=== PATIENT | female | born 1930 | race Caucasian/White ===

== ENCOUNTER 2017-05-12 15:52 | Inpatient (IN) ==
--- NOTE | 2017-05-12 16:10 | Emergency Department Note ---
Disposition Clinical Impression: Dehydration Disposition: Admitted As Inpatient Condition: Good Time of Disposition: 20:00 Weakness HPI - General Chief complaint: ED Weakness Stated complaint: WEAKNESS Time Seen by Provider: 05/12/17 15:54 Source: patient Mode of arrival: wheelchair Limitations: no limitations Nursing Notes Reviewed: Yes Vital Signs Reviewed: Yes - History of Present Illness HPI Narrative: 87-year-old female presents with complaints of generalized weakness. Patient was diagnosed with influenza last week and has been severely weak since that time. Patient has not been tolerating liquids or foods. Patient feels dizziness when she stands. Patient was taken off the Tamiflu considering that she was having a reaction to this. Patient per she is Feeling much better. Patient reports some nausea no vomiting no diarrhea. Patient has had similar symptoms in the past. Pt Subjective Complaint: generalized weakness/fatigue Onset (ago): week(s) (1) Duration: constant Location: generalized Migration: none Pain Severity: none Pain Scale: 0 Context: recent illness Associated symptoms: Reports: loss of appetite, nausea/vomiting - Related Data Home Medications Medication Instructions Recorded Confirmed Furosemide [Lasix] 40 mg PO BID 10/09/16 05/12/17 Levothyroxine [Synthroid] 50 mcg PO 0630 10/09/16 05/12/17 Albuterol Sulfate [Proair Hfa] 2 puff IH Q6H PRN 05/12/17 05/12/17 Aloe Vera 25 mg PO DAILY 05/12/17 05/12/17 Aspirin [Ecotrin] 325 mg PO DAILY 05/12/17 05/12/17 Biotin 5 mg PO DAILY 05/12/17 05/12/17 Cholecalciferol (Vitamin D3) 2,000 unit PO DAILY 05/12/17 05/12/17 [Vitamin D] Dicyclomine [Bentyl] 10 mg PO QID 05/12/17 05/12/17 Lactobacillus Combination No.8 1 cap PO DAILY 05/12/17 05/12/17 [Adult Probiotic] Meclizine [Antivert] 25 mg PO TID PRN 05/12/17 05/12/17 Mineral Oil 45 ml PO DAILY PRN 05/12/17 05/12/17 [place] Q Plus 1 cap PO DAILY 05/12/17 Ondansetron ODT [Zofran ODT] 4 mg SL Q8HR PRN 05/12/17 05/12/17 Allergies Allergy/AdvReac Type Severity Reaction Status Date / Time phenobarbital Allergy Agitated Verified 05/12/17 16:09 Sulfa (Sulfonamide Allergy Hives Verified 05/12/17 16:09 Antibiotics) All systems ED: reviewed and negative except as stated. Review of Systems: As Per HPI Constitutional: Reports: weakness. Denies: fever, chills Cardiovascular: Denies: chest pain, palpitations Respiratory: Denies: cough, dyspnea Gastrointestinal: Reports: nausea. Denies: abdominal pain, vomiting, diarrhea Past Medical History - Past Medical History Attestation: Yes The following information was validated with the patient. Source: patient, nursing notes reviewed Medical history: Reports: hyperlipidemia, hypertension, myocardial infarction, thyroid disease Psychiatric history: Reports: no psych history PUMP TECHNICIAN history: Reports: non-contributory - Social History Smoking Status: Never smoker Smokeless Tobacco Status: No Alcohol use: Reports: none Drug use: Reports: none Physical Exam - General Limitations: no limitations General appearance: alert, in no apparent distress, cachectic - Head Head exam: atraumatic, normocephalic - Eye Eye exam: Present: PERRL, EOMI. Absent: conjunctival injection - ENT ENT exam: mucous membranes dry - Neck Neck exam: Present: normal inspection, full ROM. Absent: lymphadenopathy, thyromegaly - Chest Chest inspection: Present: normal inspection, symmetric chest wall rise - Respiratory Respiratory exam: Present: normal lung sounds bilaterally - Cardiovascular Cardiovascular exam: Present: regular rate, normal rhythm, normal heart sounds - Abdominal Exam Abdominal exam: Present: soft, Non-Tender, normal bowel sounds - Extremities Exam Extremities exam: Present: normal inspection, full ROM. Absent: pedal edema - Neurological Exam Neurological exam: Present: alert, oriented X3, CN II-XII intact, reflexes normal. Absent: motor sensory deficit - Psychiatric Psychiatric exam: Present: normal affect - Skin Skin exam: Present: warm, dry, intact, normal color, other (poor turgor) Course Vital Signs Temperature 97.9 F 05/12/17 15:53 Pulse Rate 83 05/12/17 15:53 Respiratory Rate 16 05/12/17 15:53 Blood Pressure 156/73 05/12/17 15:53 O2 Sat by Pulse Oximetry 100 05/12/17 15:53 Temperature 97.9 F 05/13/17 04:00 Pulse Rate 77 05/13/17 04:00 Respiratory Rate 16 05/13/17 04:00 Blood Pressure 122/65 05/13/17 04:00 O2 Sat by Pulse Oximetry 97 05/13/17 04:00 Oxygen Delivery Oxygen Delivery Room Air Weakness - Differential Diagnosis Differential Diagnosis: Likely: dehydration, medication effect, metabolic - Lab Data Lab results reviewed: Yes I reviewed the patient's lab results. Lab results narrative: Patient with stable anemia and renal insufficiency. Result diagrams: 05/12/17 16:45 05/12/17 16:45 Lab Results 05/12/17 05/12/17 05/12/17 Range/Units 16:45 16:45 16:45 WBC 7.7 (4.3-11.1) K/mcL RBC 3.94 (3.82-4.97) M/mcL Hgb 11.4 L (11.5-15.4) g/dL Hct 34.7 L (35.3-44.9) % MCV 88.1 (83.0-100.0) fL MCH 28.9 (28.0-33.3) pg MCHC 32.9 (31.6-35.5) g/dL RDW 13.2 (11.5-14.5) % Plt Count 490 H (140-400) K/mcL MPV 10.3 (9.4-12.4) fL Immature Gran % 0.6 (0-4) % Seg Neutrophils % 59.1 % Lymphocytes % 30.9 % Monocytes % 7.7 % Eosinophils % 1.3 % Basophils % 0.4 % Neutrophils # 4.6 (1.6-8.9) K/mcL Lymphocytes # 2.4 (0.6-4.6) K/mcL Monocytes # 0.6 (0.0-1.3) K/mcL Eosinophils # 0.1 (0.0-0.6) K/mcL Basophils # 0.0 (0.0-0.2) K/mcL Sodium 137 (136-145) mEq/L Potassium 3.5 (3.5-4.5) mEq/L Chloride 97 L (98-109) mEq/L Carbon Dioxide 26 (19-29) mEq/L BUN 25 H (7-20) mg/dL Creatinine 1.51 H (0.57-1.11) mg/dL Est GFR ( Amer) 40 L (> 60) Est GFR (Non-Af Amer) 33 L (> 60) BUN/Creatinine Ratio 17 (6-26) Glucose 72 (70-99) mg/dL Calculated Osmolality 287 (280-300) Calcium 10.2 (8.6-10.8) mg/dL Total Bilirubin 0.5 (0.2-1.2) mg/dL AST 23 (5-34) Units/L ALT 12 (0-55) Units/L Alkaline Phosphatase 67 (38-126) Units/L Creatine Kinase 16 L (29-168) Units/L Troponin I 0.01 (0-0.03) ng/mL Serum Total Protein 7.6 (6.0-8.3) g/dL Albumin 3.1 L (3.5-5.0) g/dL Globulin 4.5 H (2.4-3.5) g/dL Albumin/Globulin Ratio 0.7 L (1.1-2.2) Urine Color (Yellow) Urine Clarity (Clear) Urine pH (5.0-8.0) pH Units Ur Specific [place] (1.010-1.025) Urine Protein (Neg-Trace) mg/dL Urine Glucose (UA) (Normal) mg/dL Urine Ketones (Negative) mg/dL Urine Blood (Negative) Urine Nitrite (Negative) Urine Bilirubin (Negative) Urine Urobilinogen (Normal) mg/dL Ur Leukocyte Esterase (Negative) Urine Microscopic WBC (0-3) per hpf Ur Squamous Epith Cells (None-Few) per lpf Urine Bacteria (None-Few) per hpf Ur Culture Indicated? (NO) 05/12/17 Range/Units 18:20 WBC (4.3-11.1) K/mcL RBC (3.82-4.97) M/mcL Hgb (11.5-15.4) g/dL Hct (35.3-44.9) % MCV (83.0-100.0) fL MCH (28.0-33.3) pg MCHC (31.6-35.5) g/dL RDW (11.5-14.5) % Plt Count (140-400) K/mcL MPV (9.4-12.4) fL Immature Gran % (0-4) % Seg Neutrophils % % Lymphocytes % % Monocytes % % Eosinophils % % Basophils % % Neutrophils # (1.6-8.9) K/mcL Lymphocytes # (0.6-4.6) K/mcL Monocytes # (0.0-1.3) K/mcL Eosinophils # (0.0-0.6) K/mcL Basophils # (0.0-0.2) K/mcL Sodium (136-145) mEq/L Potassium (3.5-4.5) mEq/L Chloride (98-109) mEq/L Carbon Dioxide (19-29) mEq/L BUN (7-20) mg/dL Creatinine (0.57-1.11) mg/dL Est GFR ( Amer) (> 60) Est GFR (Non-Af Amer) (> 60) BUN/Creatinine Ratio (6-26) Glucose (70-99) mg/dL Calculated Osmolality (280-300) Calcium (8.6-10.8) mg/dL Total Bilirubin (0.2-1.2) mg/dL AST (5-34) Units/L ALT (0-55) Units/L Alkaline Phosphatase (38-126) Units/L Creatine Kinase (29-168) Units/L Troponin I (0-0.03) ng/mL Serum Total Protein (6.0-8.3) g/dL Albumin (3.5-5.0) g/dL Globulin (2.4-3.5) g/dL Albumin/Globulin Ratio (1.1-2.2) Urine Color Yellow (Yellow) Urine Clarity Clear (Clear) Urine pH 6.0 (5.0-8.0) pH Units Ur Specific [place] <= 1.005 L (1.010-1.025) Urine Protein Negative (Neg-Trace) mg/dL Urine Glucose (UA) Normal (Normal) mg/dL Urine Ketones Trace H (Negative) mg/dL Urine Blood Negative (Negative) Urine Nitrite Negative (Negative) Urine Bilirubin Negative (Negative) Urine Urobilinogen Normal (Normal) mg/dL Ur Leukocyte Esterase Trace H (Negative) Urine Microscopic WBC 3-5 H (0-3) per hpf Ur Squamous Epith Cells Few (None-Few) per lpf Urine Bacteria Few (None-Few) per hpf Ur Culture Indicated? YES A (NO) - Radiology Data Radiology results reviewed: Yes I reviewed the patient's radiology results. Chest x-ray was interpreted by the radiologist and reviewed by me as negative for acute abnormalities. Results discussed with patient and daughter. - EKG Data EKG attestation: Yes I reviewed and interpreted this EKG. EKG shows normal: sinus rhythm Rate: normal Rhythm: NSR [place]/QRS: normal Interpretation: no acute changes
[2017-05-12] MEDS ORDERED: 0.9 % Sodium Chloride 1,000 ML IVC SCH (16:15)
[2017-05-12 16:53] LABS: Basophils % 0.4 %; Eosinophils # 0.1 K/mcL (0.0-0.6); Eosinophils % 1.3 %; Hematocrit 34.7 % (35.3-44.9); Hemoglobin 11.4 g/dL (11.5-15.4); Immature Granulocytes % 0.6 % (0-4); Lymphocytes # 2.4 K/mcL (0.6-4.6); Lymphocytes % 30.9 %; Mean Corpuscular HGB Conc 32.9 g/dL (31.6-35.5); Mean Corpuscular Hemoglobin 28.9 pg (28.0-33.3); Mean Corpuscular Volume 88.1 fL (83.0-100.0); Mean Platelet Volume 10.3 fL (9.4-12.4); Monocytes # 0.6 K/mcL (0.0-1.3); Monocytes % 7.7 %; Neutrophils # 4.6 K/mcL (1.6-8.9); Platelet Count 490 K/mcL (140-400); Red Blood Count 3.94 M/mcL (3.82-4.97); Red Cell Distribution Width 13.2 % (11.5-14.5); Segmented Neutrophils % 59.1 %
[2017-05-12 17:12] LABS: Albumin 3.1 g/dL (3.5-5.0); Albumin/Globulin Ratio 0.7 (1.1-2.2); Bilirubin,Total 0.5 mg/dL (0.2-1.2); Calcium 10.2 mg/dL (8.6-10.8); Globulin 4.5 g/dL (2.4-3.5); Potassium 3.5 mEq/L (3.5-4.5); Total Protein 7.6 g/dL (6.0-8.3)
[2017-05-12 18:35] LABS: Bilirubin,Urine Negative (Negative); Blood,Urine Negative (Negative); Clarity,Urine Clear (Clear); Color,Urine Yellow (Yellow); Glucose,Urine (UA) Normal (Normal); Ketones,Urine Trace mg/dL (Negative); Leukocyte Esterase,Urine Trace (Negative); Nitrite,Urine Negative (Negative); Protein,Urine Negative (Neg-Trace); Specific Gravity,Urine <= 1.005 (1.010-1.025); Urobilinogen,Urine Normal (Normal)
[2017-05-12 18:47] LABS: Bacteria,Urine Few per hpf (None-Few); Squamous Epithelial Cell,Urine Few per lpf (None-Few)
[2017-05-12] MEDS ORDERED: Naloxone 0.4 MG/ML INJ IVP PRN (20:54)
[2017-05-12] MEDS ORDERED: Ondansetron ODT 4 MG TAB.RAPDIS SL PRN (20:54)
[2017-05-12] MEDS ORDERED: 0.9 % Sodium Chloride 1,000 ML ONE (20:56)
[2017-05-12] MEDS: 0.9 % Sodium Chloride 1,000 ML IVC SCH ×2 (20:59)
[2017-05-12] MEDS: Furosemide 40 MG TABLET PO SCH (22:40)
[2017-05-13] MEDS: 0.9 % Sodium Chloride 1,000 ML IVC SCH ×3 (03:40→23:39)
[2017-05-13] MEDS: Furosemide 40 MG TABLET PO SCH (09:41)
[2017-05-13] MEDS: LACTOBACILLUS COMBINATION NO 8 PO SCH (09:41)
[2017-05-13] MEDS: Aspirin Enteric Coated 325 MG Tablet PO SCH (09:41)
[2017-05-13] MEDS: ALOE VERA 25 MG PO SCH (09:41)
[2017-05-13] MEDS: Cholecalciferol (D-3) 1,000 UNIT TABLET PO SCH (09:41)
[2017-05-13] MEDS: (Biotin [Biotin] 5 MG) PO SCH (09:41)
--- NOTE | 2017-05-13 15:49 | Internal Med History&Physical ---
Date of Encounter: 05/13/17 Time of Encounter: 15:43 Internal Medicine - H&P: HPI Chief complaint: Patient had flu she is 87 years old. She states she just kept getting weak Admitted From: Emergency Dept Plans for Post Hospital Care: Home History of present illness: Ms. Allred is a 87 year old female Past Med Surg Social Fam HX - Past Medical History Medical history: hyperlipidemia, hypertension, myocardial infarction, thyroid disease Psychiatric history: no psych history - Social History Smoking Status: Never smoker Smokeless Tobacco Status: No Alcohol use: none Drug use: none Internal Medicine - H&P: Meds Furosemide [Lasix] 40 mg PO BID 10/09/16 [History] Levothyroxine [Synthroid] 50 mcg PO 0630 10/09/16 [History] Albuterol Sulfate [Proair Hfa] 2 puff IH Q6H PRN 05/12/17 [History] Aloe Vera 25 mg PO DAILY 05/12/17 [History] Aspirin [Ecotrin] 325 mg PO DAILY 05/12/17 [History] Biotin 5 mg PO DAILY 05/12/17 [History] Cholecalciferol (Vitamin D3) [Vitamin D] 2,000 unit PO DAILY 05/12/17 [History] Dicyclomine [Bentyl] 10 mg PO QID 05/12/17 [History] Lactobacillus Combination No.8 [Adult Probiotic] 1 cap PO DAILY 05/12/17 [ History] Meclizine [Antivert] 25 mg PO TID PRN 05/12/17 [History] Mineral Oil 45 ml PO DAILY PRN 05/12/17 [History] [place] Q Plus 1 cap PO DAILY 05/12/17 [History] Ondansetron ODT [Zofran ODT] 4 mg SL Q8HR PRN 05/12/17 [History] 3 Allergy/AdvReac Type Severity Reaction Status Date / Time phenobarbital Allergy Agitated Verified 05/12/17 16:09 Sulfa (Sulfonamide Allergy Hives Verified 05/12/17 16:09 Antibiotics) All Systems PM: A 10-system review of systems was performed and is negative for pertinent findings except as documented above in the HPI. - Constitutional Constitutional: anorexia, fatigue, weakness, weight loss Additional comments: He may have lost up to 13 pounds since her acute illness - EENT Eyes: no blurry vision, no change in vision, no decreased night vision, no diplopia, no discharge, no dry eye, no floaters, no irritation, no itchy eyes, no loss of peripheral vision, no loss of vision, no pain, no photophobia, no seeing flashes, no spots in vision, no tunnel vision, no other visual disturbances Ears: no ear discharge, no tinnitus Nose, mouth and throat: no dysphagia, no epistaxis, no facial pain, no hoarseness, no nasal obstruction, no neck mass, no neck pain, no nose pain, no throat swelling, no tongue swelling - Breasts Breasts: no change in shape, no mass, no pain, no nipple discharge, no skin changes, no swelling - Cardiovascular Cardiovascular ROS IM: no as per HPI, no chest pain, no diaphoresis, no dyspnea , no dyspnea on exertion, no edema, no lightheadedness, no orthopnea, no palpitations, no paroxysmal nocturnal dyspnea, no syncope - Respiratory Respiratory: cough, dyspnea on exertion, chest congestion, no dyspnea, no hemoptysis, no pain on inspiration, no excessive phlegm production, no change in phlegm color - Gastrointestinal Gastrointestinal: cramping, diarrhea, loose stools, no abdominal pain, no belching, no bloating, no change in bowel habits, no change in stool character, no coffee ground emesis, no constipation, no dyspepsia, no dysphagia, no early satiety, no excessive flatus, no fecal incontinence, no heartburn, no hematemesis, no hematochezia, no melena, no nausea, no odynophagia, no tenesmus , no vomiting, no other - Genitourinary Genitourinary: no abnormal menses, no abnormal vaginal bleeding, no amenorrhea, no breast change in shape, no breast mass, no breast pain, no breast skin changes, no breast swelling, no change in libido, no change in urinary stream, no difficulty conceiving, no difficulty urinating, no difficulty voiding, no dysmenorrhea, no dyspareunia, no dysuria, no flank pain, no genital lesions, no genital pruritis, no hematuria, no hot flashes, no light periods, no menorrhagia , no metrorrhagia, no nipple discharge, no nocturia, no pelvic pain, no post void dribbling, no prolapse symptoms, no sexual dysfunction, no urinary frequency, no urinary hesitancy, no urinary incontinence, no urinary urgency, no vaginal discharge, no vaginal dryness, no vaginal odor, no vaginal pruritis Additional comments: Patient is a 7 this is not applicable - Integumentary Integumentary IM: no erythema, no pruritus, no rash, no unusual bruising, no jaundice - Neurological Neurological ROS: no abnormal gait, no abnormal hearing, no abnormal movements, no abnormal speech, no behavioral changes, no burning sensations, no confusion, no convulsions, no disequilibrium, no dizziness, no focal weakness, no frequent falls, no headache(s), no lack of coordination, no numbness, no paresthesias, no radicular pain, no restless legs, no tingling, no tremor(s), no vertigo, no weakness, no other visual disturbances - Psychiatric Psychiatric: no abnormal sleep pattern, no anhedonia, no anxiety, no auditory hallucinations, no behavioral changes, no change in appetite, no change in libido, no confusion, no depression, no difficulty concentrating, no hallucinations, no homicidal ideation, no hopelessness, no irritability, no memory loss, no mood swings, no panic attacks, no paranoia, no suicidal ideation , no visual hallucinations, no tactile, no other - Endocrine Endocrine IM: no as per HPI, no deeping of the voice, no excessive sweating, no fatigue, no flushing, no heat intolerance, no polydipsia, no polyphagia, no polyuria - Hematologic/Lymphatic Hematologic/Lymphatic: no easy bleeding, no easy bruising, no lymphadenopathy - Allergic/Immunologic Allergic/Immunologic: no tongue swelling, no throat swelling, no itchy eyes, no seasonal rhinorrhea, no wheezing, no GI upset with certain foods, no lip swelling - Constitutional Vitals: Temp Pulse Resp BP Pulse Ox 97.9 F 71 15 116/67 99 05/13/17 11:30 05/13/17 11:30 05/13/17 11:30 05/13/17 11:30 05/13/17 11:30 Internal Med - H&P Results - Labs CBC & Chem 7: 05/12/17 16:45 05/12/17 16:45 - Impressions ITS Impressions Chest X-Ray 05/13/17 10:18 IMPRESSION: Suspected developing left basilar pneumonia, 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 D/ / Mario Magallon MD / Mario Magallon MD Interpreting Provider: Mario Magallon MD - VTE Documentation of Mechanical Device: Graduated compression elastic hosiery
[2017-05-14] MEDS: 0.9 % Sodium Chloride 1,000 ML IVC SCH ×2 (04:45→21:57)
[2017-05-14] MEDS: LACTOBACILLUS COMBINATION NO 8 PO SCH (09:10)
[2017-05-14] MEDS: (Biotin [Biotin] 5 MG) PO SCH (09:10)
[2017-05-14] MEDS: ALOE VERA 25 MG PO SCH (09:10)
[2017-05-14] MEDS: Aspirin Enteric Coated 325 MG Tablet PO SCH (09:11)
[2017-05-14] MEDS: Cholecalciferol (D-3) 1,000 UNIT TABLET PO SCH (09:11)
--- NOTE | 2017-05-14 14:30 | Internal Med Progress Note ---
Date of Encounter: 05/14/17 Time of Encounter: 14:28 - Assessment and plan (1) Weakness Current Visit: Yes Status: Acute Assessment and plan: Patient has no appetite. Start some Megace. Offered magic cup AND will offer milkshake after each meals attempted (2) Failure to thrive Current Visit: Yes Status: Acute Assessment and plan: Patient is currently anorectic and she is really not have much appetite for about 2 weeks now. She did have a flulike symptoms and she weighed about 110 she thinks now she is 89. So she may have lost up to 20 pounds - Time Spent With Patient 25 - 35 minutes - Subjective Interval history: start some megace and last night Magic cup . Will offer milkshakes after each meal - Constitutional Vitals: Temp Pulse Resp BP Pulse Ox 98.2 F 67 16 134/57 100 05/14/17 12:05 05/14/17 12:05 05/14/17 12:05 05/14/17 12:05 05/14/17 12:05 - Head Head exam: Present: atraumatic, normal inspection, normocephalic - Neck Neck exam general surgery: Present: supple, trachea midline. Absent: lymphadenopathy - Respiratory Respiratory exam: Present: CTAB. Absent: accessory muscle use, rales, rhonchi, wheezes - Cardiovascular Cardiovascular exam: Present: RRR, +S1, +S2. Absent: diastolic murmur, gallop, rubs, systolic murmur Internal Medicine: Result - Labs CBC & Chem 7: 05/12/17 16:45 05/12/17 16:45 Labs: Stable - VTE Documentation of Mechanical Device: Graduated compression elastic hosiery Consult Discharge Plan - Plan Referrals: Enrique Cook, NEWS GATHERING TECHNICIAN [Primary Care Provider] -
--- NOTE | 2017-05-14 16:23 | Electrocardiograph Report ---
[address] [place] [address] Test Date: 2017-05-12 Pat Name: Judith Allred Department: 2000 Room: 115 Gender: F Bleach Tester: : [id number] Requested By: Indu Palacios Order Number: [id number] Reading MD: Wei Powers Measurements Intervals [place] Rate: 69 P: 47 [place]: 158 QRS: -8 QRSD: 85 T: -1 QT: 396 QTc: 416 Interpretive Statements SINUS RHYTHM POSSIBLE ANTERIOR MYOCARDIAL INFARCTION, OF INDETERMINATE AGE INFERIOR MYOCARDIAL INFARCTION, OF INDETERMINATE AGE Electronically Signed On 05-14-2017 16:21:21 EST by Wei Powers
[2017-05-14] MEDS: Amoxicillin 500 MG CAPSULE PO SCH (20:39)
[2017-05-14 23:16] LABS: Bilirubin,Urine Negative (Negative); Blood,Urine Trace-lysed (Negative); Clarity,Urine Clear (Clear); Color,Urine Yellow (Yellow); Glucose,Urine (UA) Normal (Normal); Ketones,Urine Negative (Negative); Leukocyte Esterase,Urine Large (Negative); Nitrite,Urine Negative (Negative); Protein,Urine Negative (Neg-Trace); Specific Gravity,Urine 1.015 (1.010-1.025); Urobilinogen,Urine Normal (Normal)
[2017-05-14 23:42] LABS: Bacteria,Urine Few per hpf (None-Few); Squamous Epithelial Cell,Urine Few per lpf (None-Few); WBC,Urine 15-30 per hpf (0-3)
[2017-05-15] MEDS: Amoxicillin 500 MG CAPSULE PO SCH ×2 (08:36→21:06)
[2017-05-15] MEDS: Aspirin Enteric Coated 325 MG Tablet PO SCH (08:36)
[2017-05-15] MEDS: Cholecalciferol (D-3) 1,000 UNIT TABLET PO SCH (08:36)
[2017-05-15] MEDS: (Biotin [Biotin] 5 MG) PO SCH (08:37)
[2017-05-15] MEDS: LACTOBACILLUS COMBINATION NO 8 PO SCH (08:37)
[2017-05-15] MEDS: ALOE VERA 25 MG PO SCH (08:37)
[2017-05-15] MEDS: 0.9 % Sodium Chloride 1,000 ML IVC SCH (15:32)
--- NOTE | 2017-05-15 16:20 | Internal Med Progress Note ---
Date of Encounter: 05/15/17 Time of Encounter: 16:18 - Assessment and plan (1) Kidney failure Current Visit: Yes Status: Acute Assessment and plan: - elevated BUN/CR. unknown baseline at this time - On 60mg NS in, but stopped due to crackles on exam and pt tolerating oral hydration Qualifiers: Renal failure chronicity: acute on chronic Acute renal failure type: unspecified Chronic kidney disease stage: unspecified stage Qualified Code(s ): N17.9 - Acute kidney failure, unspecified; N18.9 - Chronic kidney disease, unspecified; N18.9 - Chronic kidney disease, unspecified (2) Dehydration Current Visit: Yes Status: Acute Assessment and plan: - improved with pt/ot (3) Weakness Current Visit: Yes Status: Acute (4) Failure to thrive Current Visit: Yes Status: Acute Assessment and plan: - discussed d/c meclizine all together at this time - advised pt against megace at this time give the increase risk of DVT - believe this is more related to acute illness, and anticipate improvement Qualifiers: Failure to thrive age range: in adult Qualified Code(s): R62.7 - Adult failure to thrive - Time Spent With Patient 25 - 35 minutes - Subjective Interval history: - no complaints today, feels some what stronger than before - Constitutional Vitals: Temp Pulse Resp BP Pulse Ox 98.3 F 66 15 124/66 97 05/15/17 11:00 05/15/17 11:00 05/15/17 11:00 05/15/17 11:00 05/15/17 11:00 General appearance: Present: A&O X 3 - Head Head exam: Present: atraumatic, normal inspection, normocephalic - Respiratory Respiratory exam: Present: CTAB, rales. Absent: accessory muscle use, prolonged expiratory phase, stridor, wheezes, tachypnea - Cardiovascular Cardiovascular exam: Present: RRR, +S1, +S2 - GI/Abdominal GI/Abdominal exam: Present: normal bowel sounds, soft. Absent: rigid, tenderness - Psychiatric Psychiatric exam: Present: normal affect, normal mood. Absent: agitated, anxious, depressed Internal Medicine: Result - Labs CBC & Chem 7: 05/12/17 16:45 05/12/17 16:45 Labs: Urine 05/14/17 Range/Units 18:11 Urine Color Yellow (Yellow) Urine Clarity Clear (Clear) Urine pH 6.0 (5.0-8.0) pH Units Ur Specific [place] 1.015 (1.010-1.025) Urine Protein Negative (Neg-Trace) mg/dL Urine Glucose (UA) Normal (Normal) mg/dL - VTE Reasons for not Prescribing Prophylaxis: Treatment not Indicated - Low risk for VTE Documentation of Mechanical Device: Graduated compression elastic hosiery Consult Discharge Plan - Plan Referrals: Enrique Cook KETTLE COORDINATOR [Primary Care Provider] -
[2017-05-16] MEDS: Cholecalciferol (D-3) 1,000 UNIT TABLET PO SCH (08:17)
[2017-05-16] MEDS: Aspirin Enteric Coated 325 MG Tablet PO SCH (08:17)
[2017-05-16] MEDS: Amoxicillin 500 MG CAPSULE PO SCH (08:17)
[2017-05-16] MEDS: ALOE VERA 25 MG PO SCH (08:17)
[2017-05-16] MEDS: (Biotin [Biotin] 5 MG) PO SCH (08:18)
[2017-05-16] MEDS: LACTOBACILLUS COMBINATION NO 8 PO SCH (08:18)
--- NOTE | 2017-05-16 15:11 | Internal Med Progress Note ---
Date of Encounter: 05/16/17 Time of Encounter: 15:07 - Assessment and plan (1) Community acquired pneumonia Current Visit: Yes Status: Acute Assessment and plan: - pt was positive for flu as reported by her - suspecting pneumonia now per chest x-ray - Has interstitial lung disease but opacity on the left lower lob is very suspecious for pneumonia - she is stated on rocephin and azithromycin today 05/16/17 Qualifiers: Laterality: left Lung location: lower lobe of lung Qualified Code(s): J18.1 - Lobar pneumonia, unspecified organism (2) Kidney failure Current Visit: Yes Status: Acute Assessment and plan: - elevated BUN/CR. unknown baseline at this time - On oral hydration, encouraged to drink more Qualifiers: Renal failure chronicity: acute on chronic Acute renal failure type: unspecified Chronic kidney disease stage: unspecified stage Qualified Code(s ): N17.9 - Acute kidney failure, unspecified; N18.9 - Chronic kidney disease, unspecified; N18.9 - Chronic kidney disease, unspecified (3) Dehydration Current Visit: Yes Status: Acute Assessment and plan: - improved with pt/ot - Time Spent With Patient less than 15 minutes - Subjective Interval history: - no complaints today, feels some what stronger than before - Constitutional Vitals: Temp Pulse Resp BP Pulse Ox 97.6 F 78 16 166/76 95 05/16/17 11:00 05/16/17 11:00 05/16/17 11:00 05/16/17 11:00 05/16/17 11:00 General appearance: Present: A&O X 3 - Head Head exam: Present: atraumatic, normocephalic - Eye Eye exam: Present: PERRL, conjuntiva pink, sclera anicteric Pupils: Present: PERRL - Neck Neck exam general surgery: Present: supple, trachea midline. Absent: lymphadenopathy - Respiratory Respiratory exam: Present: rales, rhonchi. Absent: accessory muscle use, wheezes Additional comments: diffuse rales through out bilateral lungs - Cardiovascular Cardiovascular exam: Present: RRR, +S1, +S2. Absent: diastolic murmur, gallop, rubs, systolic murmur - GI/Abdominal GI/Abdominal exam: Present: normal bowel sounds, soft, no peritoneal signs. Absent: distended, tenderness - Extremities Exam Extremities exam: Present: warm, radial pulses palpable and symmetrical. Absent : calf tenderness, cyanotic, pedal edema - Neurological Exam Neurological exam: Present: CN II-XII intact, oriented X3, no focal deficits. Absent: pronater drift, facial droop, speech deficit - Skin Skin exam: Present: dry, intact Internal Medicine: Result - Labs CBC & Chem 7: 05/12/17 16:45 05/12/17 16:45 - Impressions Impressions Chest X-Ray 05/16/17 11:10 IMPRESSION: No significant change in left basilar airspace disease superimposed on chronic changes. D/ / Edgar Carlin MD / Edgar Carlin MD Interpreting Provider: Edgar Carlin MD - VTE Reasons for not Prescribing Prophylaxis: Treatment not Indicated - Low risk for VTE Documentation of Mechanical Device: Graduated compression elastic hosiery Consult Discharge Plan - Plan Referrals: Enrique Cook, FILM CUTTER [Primary Care Provider] -
[2017-05-16] MEDS: Azithromycin 250 MG TABLET PO SCH (15:48)
[2017-05-17] MEDS ORDERED: Biotin [Biotin] 5 MG PO SCH (09:00)
[2017-05-17] MEDS ORDERED: Aloe Vera [Aloe Vera] 25 MG PO SCH (09:00)
[2017-05-17] MEDS ORDERED: Furosemide 40 MG TABLET PO SCH (09:00)
[2017-05-17] MEDS ORDERED: Lactobacillus 1 EACH CAP.SPRINK PO SCH (09:00)
[2017-05-17] MEDS: Aspirin Enteric Coated 325 MG Tablet PO SCH (09:51)
[2017-05-17] MEDS: Cholecalciferol (D-3) 1,000 UNIT TABLET PO SCH (09:51)
[2017-05-17] MEDS: Azithromycin 250 MG TABLET PO SCH (09:51)
[2017-05-17 11:47] VITALS: BP 119/66
--- NOTE | 2017-05-17 13:54 | Discharge Summary ---
Date of Encounter: 05/17/17 Time of Encounter: 13:52 - Discharge Diagnosis (1) Weakness Priority: Primary Status: Deleted (2) Failure to thrive Priority: Primary Status: Deleted Qualifiers: Failure to thrive age range: in adult Qualified Code(s): R62.7 - Adult failure to thrive - Discharge Medications Home Medications: Furosemide [Lasix] 40 mg PO BID 10/09/16 [History] Levothyroxine [Synthroid] 50 mcg PO 0630 10/09/16 [History] Albuterol Sulfate [Proair Hfa] 2 puff IH Q6H PRN 05/12/17 [History] Aloe Vera 25 mg PO DAILY 05/12/17 [History] Aspirin [Ecotrin] 325 mg PO DAILY 05/12/17 [History] Biotin 5 mg PO DAILY 05/12/17 [History] Cholecalciferol (Vitamin D3) [Vitamin D] 2,000 unit PO DAILY 05/12/17 [History] Dicyclomine [Bentyl] 10 mg PO QID 05/12/17 [History] Lactobacillus Combination No.8 [Adult Probiotic] 1 cap PO DAILY 05/12/17 [ History] Meclizine [Antivert] 25 mg PO TID PRN 05/12/17 [History] Mineral Oil 45 ml PO DAILY PRN 05/12/17 [History] [place] Q Plus 1 cap PO DAILY 05/12/17 [History] Ondansetron ODT [Zofran ODT] 4 mg SL Q8HR PRN 05/12/17 [History] Allergies/Adverse Reactions: 3 Allergy/AdvReac Type Severity Reaction Status Date / Time phenobarbital Allergy Agitated Verified 05/12/17 16:09 Sulfa (Sulfonamide Allergy Hives Verified 05/12/17 16:09 Antibiotics) ceftriaxone [From Rocephin] AdvReac Dizziness Verified 05/16/17 16:25 Date of admission: 05/14/17 15:58 Primary care physician: Enrique Cook CNP Discharging clinician: Robert Schreiber Anticipated date of discharge: 05/17/17 - Patient Status Disposition: Home, Self-Care Overall status at discharge: patient is progressing back to baseline - Discharge Instructions Follow Up With: Enrique Cook CNP [Primary Care Provider] - - Diet and Activity Activity: resume usual activities as tolerated Diet: advance to your usual diet Hospital course: Ms. Allred is a 87 year old female - Time Spent with Patient Total time spent providing and/or coordinating discharge services: - Constitutional Vitals: Temp Pulse Resp BP Pulse Ox 98.0 F 100 18 119/66 99 05/17/17 11:38 05/17/17 11:38 05/17/17 11:38 05/17/17 11:38 05/17/17 07:25 General appearance: Present: A&O X 3 - VTE Reasons for not Prescribing Prophylaxis: Treatment not Indicated - Low risk for VTE Documentation of Mechanical Device: Graduated compression elastic hosiery
== END 2017-05-17 15:34 | disposition home or self-care (01) | DRG 640 ==
LOC: INPGRE 15:52 → EMEROOGRE 15:52 → INPGRE 20:00 → EMEROOGRE 20:00 → UNDODISOB 20:53
PROVIDERS: ADMIT Internal Medicine; ATTEND Internal Medicine